=== PATIENT | male | born 1980 | race Caucasian/White ===

== ENCOUNTER 2017-07-03 00:51 | Emergency (ER) | payer BC ==
--- NOTE | 2017-07-03 01:19 | ERNOTE ---
Psychological HPI - General Chief Complaint: Anxiety Source: Reports: patient Exam Limitations: Reports: no limitations - Immun/Allergies/Home Medications Allergies/Adverse Reactions: Allergies No Known Drug Allergies Allergy (Verified 07/03/17 01:00) Home Medications: HOME MEDICATIONS NK [No Home Medication] 07/03/17 [Last Taken Unknown] - History of Present Illness Narrative: Pt states that earlier this evening at work he began to have right sided chest tightness. He Time Seen by Provider: 07/03/17 01:04 Arrived by: Reports: private car Onset/duration: Reports: sudden onset Review of Systems - Review of Systems Constitutional: Absent: recent illness, fever, chills EYE: Present: no symptoms reported ENT: Present: no symptoms reported Respiratory: Present: shortness of breath Cardiology: Present: See HPI Gastrointestinal/Abdominal: Present: nausea. Absent: vomiting, abdominal pain Genitourinary: Absent: frequency, pain Musculoskeletal: Absent: back pain, muscle pain Skin: Present: no symptoms reported Neurological: Present: anxiety Endocrine: Present: no symptoms reported Hematologic/Lymphatic: Present: no symptoms reported Psych: Present: no symptoms reported - Patient's Past Medical History Patient History - Medical: Anxiety Patient History - Cardiac/Respiratory: No pertinent hx Patient History - Cancer: No Hx of Cancer Patient History - Surgical Procedures: Urology Patient History - Other: None - Social History Living Situations: home Abuse History: No History of abuse Psych History: Hx of Anxiety Smoking Status: Former smoker Have you smoked in the past 12 months: Yes Alcohol Use: occasionally Drug Use: none - Immunizations Immunizations Up to Date: Yes History of Influenza Vaccine: No Physical Exam - Physical Exam General Appearance: Present: wd/wn, alert, no apparent distress Head Exam: Present: normal inspection, no evidence of injury Eye Exam: Normal inspection: bilateral Neck: Present: normal inspection, nontender Respiratory: Present: no respiratory distress, normal breath sounds, lungs clear Cardiovascular/Chest: Present: regular rate, rhythm, no murmur, normal peripheral pulses Gastrointestinal/Abdominal: Present: normal bowel sounds, nontender, nondistended Back Exam: Present: normal inspection, normal range of motion, no vertebral tenderness Extremity Exam: Present: normal inspection, normal range of motion, no edema Neurological Exam: Present: alert, oriented, normal mood/affect Skin Exam: Present: normal color, warm/dry Lymphatic Exam: Present: no adenopathy ED Progress - Results and Orders Patient's Lab Results:: I have reviewed the patient's lab results. Results and Orders: Laboratory Tests 07/03/17 07/03/17 01:25 01:25 WBC 7.1 Hgb 14.4 Hct 42.4 Plt Count 196 Sodium 142 Potassium 3.8 Chloride 104 Carbon Dioxide 27.9 Anion Gap 13.9 H BUN 15 Creatinine 1.08 Est GFR (Non-Af Amer) 83 BUN/Creatinine Ratio 13.9 Random Glucose 127 H Calcium 8.2 Total Bilirubin 0.4 AST 14 ALT 17 L Alkaline Phosphatase 102 Troponin I Less than 0.017 Total Protein 7.6 Albumin 4.0 - Vital Signs Patient's Vital Signs:: I have reviewed the patient's vital signs. Vital Signs: Vital Signs 07/03/17 00:54 Temperature 37.1 C Pulse Rate 69 Respiratory 18 Rate Blood Pressure 151/75 O2 Sat by Pulse 99 Oximetry - EKG EKG: NSR EKG read: Interp. by me EKG Comments: incomplete RBBB. - X-Ray X-Ray #1 X-Ray: chest Interpretation: Reviewed by me X-ray Comments: nothing acute - Progress/Reassessment Chief Complaint: Anxiety Progress:: Improved Progress Note-Subjective: 07/03/17 05:11 Discussed hydroxyzine for anxiety and at first pt did not want to take anything but as I explained it he felt like it would be ok. Departure Clinical Impression: Chest pain Qualifiers: Chest pain type: unspecified Qualified Code(s): R07.9 - Chest pain, unspecified - Departure Disposition: Home Follow Up Needed Condition: Good Instructions: Panic Attacks, Rike-te-Remn, Nonspecific Chest Pain, [id number] Additional Instructions: Take the hydroxyzine as needed for anxiety. See your regular doctor as soon as you can.
[2017-07-03 01:36] LABS: Hematocrit 42.4 % (42.0-52.0); Hemoglobin 14.4 gm/dL (13.5-18.0); Mean Cell Volume 85.8 fl (78-100); Mean Corpuscular Hemoglobin 29.1 pg (27-31); Mean Platelet Volume 10.2 fl (6.0-9.5); Neutrophil # 3.4 K/mm3 (1.3-6.0); Neutrophil % 47.8 % (42-75.0); Platelet Count 196 K/mm3 (150-450); Red Blood Count 4.94 M/mm3 (4.7-6.0); Red Cell Distribution Width 12.9 % (11.5-14.0); White Blood Count 7.1 K/mm3 (4.0-10.5)
[2017-07-03 01:55] LABS: ALT 17 U/L (19-67); AST 14 U/L (0-48); Alkaline Phosphatase * 102 U/L (50-170); Anion Gap 13.9 mmol/L (6.8-13.8); BUN/Creatinine Ratio 13.9 (9.0-21.6); Bilirubin, Total 0.4 mg/dL (0.0-1.1); Blood Urea Nitrogen 15 mg/dL (6-23); Ca. Corrected For Albumin 7.9 mg/dL (8.4-10.2); Calcium * 8.2 mg/dL (7.9-10.9); Carbon Dioxide 27.9 mmol/L (24-32.6); Chloride 104 mmol/L (97-106); Glucose * 127 mg/dL (70-110); Potassium 3.8 mmol/L (3.4-4.6); Sodium 142 mmol/L (132-142); Total Protein 7.6 gm/dL (6.2-8.2)
[2017-07-03 02:12] LABS: Troponin I Less than 0.017 ng/ml (0.00-0.10)
[2017-07-03] MEDS ORDERED: MAG HYDROX/ALUMINUM HYD/SIMETH 30 ML UDC PO ONE (02:35)
[2017-07-03] MEDS ORDERED: SUCRALFATE 1 G/10 ML UDC PO ONE (02:35)
[2017-07-03] MEDS ORDERED: LIDOCAINE HCL 20 ML UDC PO ONE (02:35)
[2017-07-03 02:43] VITALS: BP 124/81
[2017-07-03] MEDS ORDERED: hydrOXYzine PAMOATE 25 MG CAPSULE PO ONE (03:03)
[2017-07-03] MEDS ORDERED: hydrOXYzine PAMOATE 25 MG CAPSULE ONE (03:04)
== END 2017-07-03 03:08 | disposition home or self-care (01) ==
LOC: ER 00:51
DX: R07.9 Chest pain, unspecified (principal); Z87.891 Personal history of nicotine dependence